=== PATIENT | male | born 1960 | race Caucasian/White ===

== ENCOUNTER → 2017-05-10 | Outpatient (CLI) | payer OTHER ==
--- NOTE | 2017-05-10 10:29 | XR ---
EXAMINATION TYPE: XR chest 2V DATE OF EXAM: 05/10/2017 COMPARISON: 09/17/2013 HISTORY: Preprocedural exam TECHNIQUE: Frontal and lateral views of the chest are obtained. FINDINGS: There is no focal air space opacity, pleural effusion, or pneumothorax seen. The cardiac silhouette size is within normal limits. The osseous structures are intact. Mild multilevel degener ative changes of the thoracic spine are noted. IMPRESSION: No acute cardiopulmonary process.
== END | disposition home or self-care (01) ==
LOC: RADXRMAIN 09:40
PROVIDERS: ATTEND Family Medicine
DX: Z01.818 Encounter for other preprocedural examination (principal); Z01.812 Encounter for preprocedural laboratory examination
CPT/HCPCS: 71046; 87070

== ENCOUNTER 2017-05-28 05:55 | Inpatient (IN) | payer OTHER ==
--- NOTE | 2017-05-27 10:09 | HP ---
HISTORY AND PHYSICAL CHIEF COMPLAINT: Left knee pain. 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 He has had previous injections along with taking anti-inflammatories. Currently he is using a cane. PAST MEDICAL HISTORY: Significant for hypertension, hypercholesterolemia, and reflux disease. PAST SURGICAL HISTORY: Significant for lumbar laminectomy. CURRENT MEDICATIONS: 1. Lisinopril. 2. Simvastatin. 3. Tylenol. He denies drug allergies. FAMILY HISTORY: Significant for heart disease and cancer. SOCIAL HISTORY: Significant for 1/2 pack per day tobacco use. 16 POINT REVIEW OF SYSTEMS: Otherwise reviewed and is noncontributory. PHYSICAL EXAMINATION: The patient is approximately 6 foot 1, 275 pounds of endomorphic habitus. HEENT exam is nonfocal. Neck is supple he, has painless passive motion of his left hip. Straight leg raise is negative. Active motion left knee -10 to 100 degrees of flexion. He has a mild effusion. He is tender about the lateral joint line. Collaterals are stable, Brianna is negative, Azucena's is equivocal. He has genu valgum alignment. His distal neurovascular exam appears to be intact in the left lower extremity. Previous weightbearing, notch, lateral, and Merchant views of the left knee obtained in the office show severe lateral compartment narrowing. IMPRESSION: 1. Left knee severe lateral compartment osteoarthrosis. 2. Increased body mass index. RECOMMENDATIONS: I talked to the patient at length regarding his treatment options. At this point, he is quite symptomatic because of pain related to his osteoarthrosis. He opts to proceed with surgery. We will plan to proceed with left total knee arthroplasty. Risks and benefits were discussed at length in layman's terms. We will institute DVT prophylaxis postoperatively. MMODL / IJN: [id number] /
[~2017-05-28 05:55] MED LIST: ACETAMINOPHEN TAB 500 MG TAB PO ONE; MELOXICAM 7.5 MG TAB PO ONE; TRANEXAMIC ACID 1,000 MG in SODIUM CHLORIDE 0.9% 50 ML IVPB ONE
[2017-05-28] MEDS ORDERED: ONDANSETRON 4 MG/2 ML VIAL IVP ONE (06:30)
[2017-05-28] MEDS ORDERED: MORPHINE SULFATE 4 MG/ML SYRINGE IV PRN (06:30)
[2017-05-28] MEDS ORDERED: LIDOCAINE 1% 20 ML VIAL (10MG/ML) FOR IV START INTRADERMA PRN (06:30)
[2017-05-28] MEDS ORDERED: MIDAZOLAM 2 MG/2 ML VIAL IV PRN (06:30)
[2017-05-28] MEDS ORDERED: SCOPOLAMINE 1.5MG/72HR PATCH TRANSDERM ONE (06:30)
[2017-05-28] MEDS ORDERED: DEXAMETHASONE SOD PHOSPHATE 10 MG/ML 1 ML VIAL IV ONE (06:30)
[2017-05-28] MEDS ORDERED: fentaNYL (PF) 50 MCG/ML 2 ML AMP ONE ×2 (07:17→08:06)
[2017-05-28] MEDS: LACTATED RINGERS 1,000 ML IV SCH (07:22)
[2017-05-28] MEDS ORDERED: MIDAZOLAM 2 MG/2 ML VIAL ONE (08:06)
[2017-05-28] MEDS ORDERED: ceFAZolin 1,000 MG VIAL ONE (08:06)
[2017-05-28] MEDS ORDERED: TRANEXAMIC ACID 1,000 MG/10 ML VIAL ONE (08:06)
[2017-05-28] MEDS ORDERED: PROPOFOL 10 MG/ML 20 ML VIAL IV ONE (08:06)
[2017-05-28] MEDS ORDERED: ePHEDrine SULFATE/0.9% NACL/PF 50 MG/5 ML SYRINGE IV ONE (08:06)
[2017-05-28] MEDS ORDERED: diphenhydrAMINE 50 MG/ML 1 ML VIAL ONE (08:06)
[2017-05-28] MEDS ORDERED: SODIUM CHLORIDE 0.9% 100 ML BAG ONE (08:06)
[2017-05-28] MEDS ORDERED: ceFAZolin IN SWFI 2 GM/20 ML SYRINGE IVP ONE (08:10)
[2017-05-28] MEDS ORDERED: ROPIVACAINE 246.25 MG, EPINEPHrine 0.5 MG, KETOROLAC 30 MG, cloNIDine HCL/PF 80 MCG, WA... MISCELLANE ONE ×5 (08:14)
--- NOTE | 2017-05-28 08:29 | P.ONQ ---
Anesthesiology Proc Note - PNB - Peripheral Nerve Block Performed Left Adductor Canal Infusion Time Out Performed: Yes Procedure Start Time: 07:24 Procedure Stop Time: 07:36 Indication: Acute Post-Operative Pain, Requested by physician Sedation Type: Sedate with meaningful contact maintained Preparation: Sterile Prep Position: Supine Catheter: Indwelling Needle Types: Jordon Needle Size: 100mm (4") Needle Gauge: 18 Technique: Ultrasound Injectate: 0.5% Ropivacaine (see comment for volume) (15 mls Ropi 0.5% + 15 mls Lidocaine 2%) Blood Aspirated: No Pain Paresthesia on Injection Noted: No Resistance on Injection: Normal Events: Uneventful and Well Tolerated
[2017-05-28] MEDS ORDERED: ceFAZolin 3,000 MG in SODIUM CHLORIDE 0.9% IRRIGATIO 3,000 ML IRRIGATION ONE (08:36)
[2017-05-28] MEDS ORDERED: LACTATED RINGERS 1,000 ML IV ONE ×2 (09:15→13:26)
[2017-05-28] MEDS ORDERED: ROPIVACAINE 1,100 MG, SODIUM CHLORIDE 0.9% 330 ML MISCELLANE PRN ×2 (09:46)
[2017-05-28] MEDS ORDERED: MAGNESIUM HYDROXIDE 2,400 MG/10 ML CUP PO PRN (10:04)
[2017-05-28] MEDS ORDERED: ONDANSETRON 4 MG/2 ML VIAL IVP PRN (10:04)
[2017-05-28] MEDS ORDERED: ACETAMINOPHEN TAB 325 MG TAB PO PRN (10:04)
[2017-05-28] MEDS ORDERED: HYDROcodone/APAP 7.5-325MG 1 EACH TAB PO PRN (10:04)
[2017-05-28] MEDS ORDERED: NALOXONE 0.4 MG/ML 1 ML VIAL IV PRN (10:04)
[2017-05-28] MEDS ORDERED: MORPHINE SULFATE 4 MG/ML SYRINGE IVP PRN ×2 (10:04)
--- NOTE | 2017-05-28 10:10 | P.DS ---
Providers Date of admission: 05/28/2017 Expected date of discharge: 05/29/17 Attending physician: Dustin Mina Primary care physician: Stated None Hospital Course: Date of admission: 05/28/2017 Date of discharge: 05/29/2017 Admission diagnosis: Status post left total knee arthroplasty Discharge diagnosis: Same Attending physician: Dr. Mina Surgical procedures: Left total knee arthroplasty Brief history: Patient is a 56-year-old male with a history of progressive primary left knee osteoarthritis. At this point patient has failed conservative treatment measures and has opted to proceed with a elective left total knee arthroplasty. Hospital course: Details of patient's surgery can be found in operative report. Patient tolerated the procedure well and was subsequently transported to orthopedic floor. Patient's orthopeidc and medical care was provided daily. Patient had daily laboratory tests performed for evaluation of overall blood counts. Patient had daily physical therapy to include strengthening range of motion as well as education with walker ambulation. Patient had daily CPM usage as part of their physical therapy program. Patient was treated with Xarelto for their postoperative DVT prophylaxis during their inpatient stay. Patient was noted to have a relatively uneventful postoperative course. Patient reported satisfactory pain control with oral pain medications by postoperative day 0. Patient showed satisfactory progress with physical therapy. Patient moved steadily through the program and had no difficulty meeting the goals by postoperative day 1. Given patient's otherwise satisfactory course and having met physical therapy goals, plan is to discharge patient home on postoperative day 1. Discharge condition/disposition: Patient will be discharged [home] in stable condition. Discharge medications: Instructions are given on resumption of patient's normal daily medications per primary care recommendation, in addition patient will be prescribed [place] 7.5 mg/325 mg, Colace 100 mg, Xarelto 10 mg. Discharge instructions: 1. Wound care and infection precautions, keep incision dry and covered while showering, no lotions, creams, moisturizers. No soaking, tubs, pools, hottubs. Do not scrub over the incision. 2. Weight-bear as tolerated with walker / cane until follow-up. 3. Ice and elevate when necessary. Do not exceed 20 minutes per hour with ice pack. 4. Utilize compression sleeve until seen at first follow up appointment. 5. Visiting nursing care. 6. Home physical therapy including home CPM. 7. Pain meds and anticoagulants per prescription. 8. Pain medication has potential to cause constipation. Increase oral fluid and fiber intake. Contact primary care provider if you have not had a bowel movement within 48 hours after discharge 9. No anti-inflammatory medication until discussed at first post operative visit, this including Motrin, Aleve, Mobic, Diclofenac. 10. Follow up in office at 2 weeks postop with Andrea Rausch PA-C 11. Follow up with your primary care doctor 7-10 days after discharge. 12. Contact [facility] with any questions, . Procedures: Left total knee arthroplasty Patient Condition at Discharge: Good Plan - Discharge Summary New Discharge Prescriptions: New Rivaroxaban [Xarelto] 10 mg PO DAILY #12 tab Docusate [Colace] 100 mg PO DAILY #30 capsule HYDROcodone/APAP 7.5-325MG [[place] 7.5] 1 - 2 each PO Q6HR PRN #60 tab PRN Reason: Pain No Action Lisinopril [Prinivil] 20 mg PO QAM traMADol HCL [Ultram] 50 mg PO Q6HR PRN PRN Reason: Pain Acetaminophen [Tylenol Arthritis] 1,300 mg PO BID Simvastatin 40 mg PO HS Pantoprazole [Protonix] 40 mg PO QAM Ubidecarenone [Co Q-10] 100 mg PO DAILY Cholecalciferol [Vitamin D3] 1,000 unit PO DAILY Glucosamine/Chondr Shah A Sod [Osteo Bi-Flex Caplet] 1 tab PO DAILY Magnesium Oxide [Perdue] 500 mg PO DAILY Discharge Medication List Lisinopril [Prinivil] 20 mg PO QAM 09/17/13 [History] Acetaminophen [Tylenol Arthritis] 1,300 mg PO BID 05/22/17 [History] Cholecalciferol [Vitamin D3] 1,000 unit PO DAILY 05/22/17 [History] Glucosamine/Chondr Shah A Sod [Osteo Bi-Flex Caplet] 1 tab PO DAILY 05/22/17 [ History] Pantoprazole [Protonix] 40 mg PO QAM 05/22/17 [History] Simvastatin 40 mg PO HS 05/22/17 [History] Ubidecarenone [Co Q-10] 100 mg PO DAILY 05/22/17 [History] traMADol HCL [Ultram] 50 mg PO Q6HR PRN 05/22/17 [History] Magnesium Oxide [Perdue] 500 mg PO DAILY 05/28/17 [History] Rivaroxaban [Xarelto] 10 mg PO DAILY #12 tab 05/28/17 [Rx] Docusate [Colace] 100 mg PO DAILY #30 capsule 05/29/17 [Rx] HYDROcodone/APAP 7.5-325MG [[place] 7.5] 1 - 2 each PO Q6HR PRN #60 tab 05/29/17 [ Rx] Follow up Appointment(s)/Referral(s): Lillian Rust DO [REFERRING] - 1 Week [facility], [NON-STAFF] - Tom Rausch PAC [PHYSICIAN 8TH GRADE MATHEMATICS TEACHER] - 06/12/17 3:30 pm Patient Instructions/Handouts: *Surgery [facility] - On-Q Pain Pump Discharge Instructions, Knee Replacement (DC) Activity/Diet/Wound Care/Special Instructions: Orthopedic Discharge Instructions: 1. Wound care and infection precautions, keep incision dry and covered while showering, no lotions, creams, moisturizers. No soaking, pools, hot tubs. Do not scrub over incision. 2. Weight-bear as tolerated with walker / cane until follow-up. 3. Ice and elevate when necessary. Do not exceed 20 minutes per hour with ice pack. 4. Utilize compression sleeve until seen at first follow up appointment. 5. Visiting nursing care. 6. Home physical therapy including home CPM. 7. Pain meds and anticoagulants per prescription. 8. Pain medication has potential to cause constipation. Increase oral fluid and fiber intake. Contact primary care provider if you have not had a bowel movement within 48 hours after discharge. 9. No anti-inflammatory medication until discussed at first post operative visit, this including Motrin, Aleve, Mobic, Diclofenac. 10. Follow up in office at 2 weeks postop with Andrea Rausch PA-C 11. Follow up with your primary care doctor 7-10 days after discharge. 12. Contact [facility] with any questions, [phone]. 13. [facility] - CPM - [phone] - Call once home to arrange delivery. Discharge Disposition: HOME WITH HOME HEALTH SERVICES
--- NOTE | 2017-05-28 10:33 | P.OP ---
Date of Procedure: 05/28/17 Preoperative Diagnosis: Left knee severe tricompartmental osteoarthrosis Postoperative Diagnosis: Same Procedure(s) Performed: Left total knee arthroplasty-posterior stabilized-cemented Implants: Depuy Attune size 8 cemented femoral component, size 7 cemented tibial component , 10 mm articular surface, 38 mm cemented patellar component. This is a posterior stabilized implant. Anesthesia: regional, local, spinal Surgeon: Dustin Mina Passenger Flagman #1: Tom Rausch Estimated Blood Loss (ml): 75 Pathology: other (Bone fragments) Condition: stable Disposition: PACU Indications for Procedure: The patient's a 56-year-old male who presents with progressive left knee pain secondary to osteoarthrosis despite conservative measures. A discussion of the risks and benefits of operative intervention versus continued conservative measures was made with patient. He opted to proceed with surgery. Operative risks to include infection, neurovascular injury, development of blood clots, possible component loosening, possible component failure and need for subsequent procedures was discussed. Informed consent was obtained. Operative Findings: As below Description of Procedure: The patient was brought to the operating room, and after induction of spinal anesthesia the left lower extremity was prepped and draped in normal fashion. The tourniquet was inflated to 270 mmHg. A longitudinal incision extending 3 finger breaths above the superior pole of patella extending to the medial aspect of the tibial tubercle was then made. The skin and subcutaneous tissues were divided sharply. Electrocautery was used for hemostasis. A medial parapatellar arthrotomy is performed. The superficial and deep portions the medial collateral ligament were elevated periosteally. The patella was everted. A portion of the retropatellar fat pad was excised sharply. The knee was flexed. The anterior cruciate ligament was sacrificed. Blunt retractors were placed. A starting hole was made in the distal femur 1 cm anterior to the posterior cruciate ligament origin. An intramedullary femoral guide was gently inserted planning on 5 valgus distal cut with 9 mm distal resection. The cutting block was pinned in place. The distal cut was then made. The posterior referencing sizing guide was utilized. I felt size 8 was most appropriate. 3 external rotation was built into the system and the cutting block was pinned in place. The anterior, posterior, and chamfer cuts were then made. The bone fragments were then removed. The box guide was placed and a reciprocating saw was used to cut the intercondylar notch. A trial size 8 femoral component was placed and was fully seated. There is good anterior to posterior medial to lateral fit. The distal peg holes were drilled. The trial component was then removed. Attention was then paid towards preparing the proximal tibia. An extra medullary guide was utilized in line with the tibial shaft and second metatarsal distally. I planned on 7 mm resection from the medial compartment. 3 of posterior slope was utilized. The cutting block was pinned in place. The proximal tibial cut was made. The bone was removed in one fragment. The tibia sized most appropriate size 7. The flexion and extension gaps were both tight therefore an additional 2 mm was resected utilizing the cutting block. The remnants of the medial lateral menisci were excised at the capsular junction with electrocautery. The trial tibial and femoral components were placed along with a 10 mm articular surface. I was able to obtain full flexion and extension with good stability with varus and valgus stress. The tibial rotation was marked with electrocautery in line with the medial one third of the tibial tubercle. Attention was then paid towards preparing the patella. A patella reamer was utilized taking this down to 15 mm of bone stock. A good flush cut was made. The patella sized most appropriately 38 mm. The peg holes were drilled. The trial components placed. The knee was taken through a range of motion. I had good patellofemoral tracking with no hands technique. The trial components were then removed. The tibia was prepared in the appropriate rotation with appropriate drill and keel punch. The flexion and extension gaps were checked and felt to be symmetric. The posterior soft tissues were injected with ropivacaine. The aqua mantis cautery was used along the posterior capsule. The bony surfaces were prepared with pulsatile lavage and dried. The tibial component was then cemented in placed and was fully seated. Excess cement was removed. The femoral component was cemented place and was fully seated. Excess cement was removed. The trial 10 mm articular surface was placed and the knee was put in full extension. The patella component was cemented in place. After the cement had sufficiently hardened, the knee was again taken through range of motion. Again I was able to obtain full flexion and extension with good stability with varus and valgus stress. The trial articular surface was removed and the final one implanted. This was fully seated. Care taken to avoid any soft tissue interposition. Pulsatile lavage was again utilized. The tourniquet was deflated the second dose of IV TXA was given. Final hemostasis was obtained with electrocautery. The medial parapatellar arthrotomy was closed with running #2 Ethibond suture. There was minimal drainage at this point therefore a deep drain was not placed. The subcutaneous tissues were reapproximated interrupted 2-0 Vicryl sutures. The skin was reapproximated with 3-0 subcu tissues were reapproximated with strata fix suture. Skin tape and adhesive was applied. A sterile dressing was applied. The patient was awoken from sedation and transferred to recovery room in good condition. Blood loss was estimated 75 mL. No complications were incurred. Sponge and needle counts were correct at the end the case.
--- NOTE | 2017-05-28 10:58 | XR ---
EXAMINATION TYPE: XR knee limited LT DATE OF EXAM: 05/28/2017 COMPARISON: NONE HISTORY: Postop replacement TECHNIQUE: 2 views left knee FINDINGS: Tibial and femoral components of in place. Postsurgical changes are present within the knee . Air is within the joint space. No acute fractures are evident. IMPRESSION: 1. No fractures post left knee replacement.
[2017-05-28] MEDS: MORPHINE SULFATE 4 MG/ML SYRINGE IVP ONE ×4 (13:24→14:05)
[2017-05-28 17:03] VITALS: BMI 35.2
[2017-05-28] MEDS: traMADol 50 MG TAB PO SCH ×3 (17:10→21:18)
[2017-05-28] MEDS: ceFAZolin IN SWFI 2 GM/20 ML SYRINGE IVP SCH (18:07)
--- NOTE | 2017-05-28 18:10 | P.HPIM ---
History of Present Illness H&P Date: 05/28/17 Chief Complaint: Medical management 56-year-old male with past medical history of hypertension hyperlipidemia and acid reflux. Patient is here for elective left total knee arthroplasty, due to advanced degenerative joint disease of the left knee where conservative medical management has failed to optimize pain control and problem started affecting his quality of life and daily living activities. Patient has tolerated procedure well this morning no immediate perioperative complications were reported. Currently is laying comfortable in bed not in any acute distress, reports that pain is well controlled. He has a Wong catheter in place with yellow clear urine. Patient did not pass bowel movement and he reported constipation for the past 3 days. Denies any nausea or vomiting he still nothing by mouth as he just came back from surgery. Denies any dizziness lightheadedness chest pain or trouble breathing. CODE STATUS was discussed with the patient, he wishes to be a full code and named his is surrogate decision-maker. Review of Systems Constitutional: Patient denies fever, denies chills, denies night sweating, denies significant weight changes Eyes: Patient denies visual changes, denies eye pain ENT: Patient denies ear pain, denies rhinorrhea, denies sore throat Cardiovascular: Patient denies chest pain, denies exertional dyspnea, denies peripheral leg edema, denies orthopnea, denies paroxysmal nocturnal dyspnea Respiratory:Patient denies cough, denies wheezing, denies shortness of breath Gastrointestinal: Patient denies diarrhea, denies constipation, denies nausea , denies vomiting, denies abdominal pain Genitourinary: Patient denies dysuria, denies hematuria, denies changes in urinary habits, denies genital lesions Musculoskeletal: Patient denies muscle pain, reports chronic low back pain, reports bilateral knee pain Psychiatric: Patient denies changes in mood or memory, denies suicidal ideation, denies anxiety Endocrine: Patient denies heat intolerance, denies cold intolerance, denies excessive thirst, denies polyuria Neurological: Patient denies focal neurologic deficits, denies weakness, denies numbness, denies tingling Hem/Lymphatic: Patient denies bleeding tendency, denies bruising, denies swollen lymph glands Allergic/Immun: Patient denies recent allergic reactions Skin: Patient denies rashes, denies pruritis, denies ulcers Past Medical History Past Medical History: GERD/Reflux, Hypertension, Osteoarthritis (OA) Additional Past Medical History / Comment(s): STEROID INJECTION Mar 2017, "Prediabetes" History of Any Multi-Drug Resistant Organisms: None Reported Past Surgical History: Back Surgery, Hernia Repair Past Anesthesia/Blood Transfusion Reactions: No Reported Reaction Past Psychological History: No Psychological Hx Reported Smoking Status: Former smoker Past Alcohol Use History: None Reported Past Drug Use History: None Reported - Past Family History Family history History Unknown: Yes (Patient reported heart disease, diabetes mellitus runs in the family. He reported cancer in his gram-positive unknown type) Medications and Allergies Home Medications Medication Instructions Recorded Confirmed Type Lisinopril [Prinivil] 20 mg PO QAM 09/17/13 05/28/17 History Acetaminophen [Tylenol Arthritis] 1,300 mg PO BID 05/22/17 05/28/17 History Cholecalciferol [Vitamin D3] 1,000 unit PO DAILY 05/22/17 05/28/17 History Glucosamine/Chondr Shah A Sod [Osteo 1 tab PO DAILY 05/22/17 05/28/17 History Bi-Flex Caplet] Ibuprofen [Motrin] 400 mg PO TID 05/22/17 05/28/17 History Pantoprazole [Protonix] 40 mg PO QAM 05/22/17 05/28/17 History Simvastatin 40 mg PO HS 05/22/17 05/28/17 History Ubidecarenone [Co Q-10] 100 mg PO DAILY 05/22/17 05/28/17 History traMADol HCL [Ultram] 50 mg PO Q6HR PRN 05/22/17 05/28/17 History Magnesium Oxide [Perdue] 500 mg PO DAILY 05/28/17 05/28/17 History Rivaroxaban [Xarelto] 10 mg PO DAILY #12 tab 05/28/17 Rx Allergies Allergy/AdvReac Type Severity Reaction Status Date / Time No Known Allergies Allergy Verified 05/28/17 12:04 Physical Exam Vitals: Vital Signs Temp Pulse Pulse Resp BP Pulse Ox 05/28/17 16:00 98.2 F 86 16 137/88 96 05/28/17 15:59 71 16 140/54 100 05/28/17 15:30 71 16 135/79 100 05/28/17 14:30 71 16 130/68 100 05/28/17 13:59 71 16 120/68 100 05/28/17 13:25 68 16 127/78 100 05/28/17 13:10 69 16 126/70 100 05/28/17 12:45 69 16 127/62 100 05/28/17 12:30 70 16 100/60 100 05/28/17 12:15 64 16 111/62 98 05/28/17 12:00 61 16 102/55 98 05/28/17 11:45 69 16 101/55 98 05/28/17 11:32 69 16 113/60 98 05/28/17 11:15 74 16 112/59 98 05/28/17 11:01 61 16 109/59 98 05/28/17 10:45 68 16 112/62 98 05/28/17 10:30 70 16 111/59 98 05/28/17 10:26 96.8 F L 65 16 99/53 98 05/28/17 07:35 81 16 133/82 97 05/28/17 06:34 97.9 F 87 16 147/91 97 Intake and Output 05/28/17 05/28/17 05/28/17 06:59 14:59 22:59 Intake Total 2000 Output Total 275 Balance 1726 Intake: IV 2000 Output: Urine 200 Estimated Blood Loss 75 Other: Voiding Method Indwelling Catheter Weight 117.934 kg 117.934 kg Patient Weight 05/29/17 06:59 Weight 117.934 kg Constitutional: No acute distress, conversant, pleasant Eyes: Anicteric sclerae, moist conjunctiva, no lid-lag Pupils equal round reactive to light ENMT: NC/AT Oropharynx clear, no erythema, exudates Neck: Supple, FROM, no masses, or JVD No carotid bruits No thyromegaly Lungs: Clear to auscultation Clear to percussion Normal respiratory effort, no accessory muscle use Cardiovascular: Heart regular in rate and rhythm, No murmurs, gallops, or rubs No peripheral edema Abdominal: Soft Nontender, no guarding, rebound or rigidity Abdomen moving with respiration Normoactive bowel sounds No hepatomegaly, No splenomegaly No palpable mass No abdominal wall hernia noted Skin: Normal temperature, tone, texture, turgor No induration No subcutaneous nodules No rash, lesions No ulcers Extremities: No digital cyanosis No clubbing Pedal pulses intact and symmetrical Radial pulses intact and symmetrical No calf tenderness Surgical dressing over the left lower extremity, nerve block over the left thigh , Surgical dressing looks dry clean and intact Psychiatric: Alert and oriented to person, place and time Appropriate affect fair judgment Neuro Muscles Strength 5/5 in all 4 extremities Except for limited exam over the left lower extremity due to recent surgery fear of pain Sensation to light touch grossly present throughout Cranial nerves II-XII grossly intact No focal sensory deficits Lymphatics: no palpable cervical or supraclavicular , or inguinal lymph nodes Thrombosis Risk Factor Assmnt - Choose All That Apply Each Factor Represents 1 point: Age 41-60 years Each Risk Factor Represents 5 Points: Elective major lower extremity arthoplasty Thrombosis Risk Factor Assessment Total Risk Factor Score: 6 Thrombosis Risk Factor Assessment Level: High Risk Assessment and Plan Assessment: 56-year-old male with history of hypertension, hyperlipidemia, acid reflux. Presented for elective left total knee arthroplasty. He tolerated procedure well morning. Currently he is seen for postoperative medical management on postoperative day #0. Plan: #Left knee degenerative joint disease status post total knee arthroplasty postoperative day #0 Pain management per orthopedic DVT prophylaxis per orthopedic #Hypertension, currently controlled Continue home medications #Hyperlipidemia Continue with statin #DVT prophylaxis, per orthopedic recommendations Acid reflux, continue with PPI #Check morning labs, Thank you for allowing us to participate in the care of this patient. Do not hesitate to contact us with questions. Someone can be reached from the [facility] hospitalist group at all hours of the day at [phone].
[2017-05-28 20:23] LABS: Glucose,Whole Blood 193 mg/dL (75-99)
[2017-05-28] MEDS: INSULIN ASPART 100 UNIT/ML 1 ML 10 ML VIAL SQ SCH (20:25)
[2017-05-28] MEDS: PANTOPRAZOLE 40 MG TABLET PO SCH (20:27)
[2017-05-28] MEDS ORDERED: SENNOSIDES-DOCUSATE SODIUM 1 EACH TAB PO SCH (21:00)
[2017-05-28] MEDS ORDERED: ATORVASTATIN 20 MG TAB PO SCH (21:00)
[2017-05-29 01:26] VITALS: TEMP 98.2
[2017-05-29] MEDS: LACTATED RINGERS 1,000 ML IV SCH (01:42)
[2017-05-29] MEDS: HYDROcodone/APAP 7.5-325MG 1 EACH TAB PO PRN ×2 (04:45→11:18)
[2017-05-29] MEDS: ceFAZolin IN SWFI 2 GM/20 ML SYRINGE IVP SCH (04:46)
--- NOTE | 2017-05-29 05:51 | P.PN ---
Progress Note - Text Progress Note Date: 05/29/17 56 yo gentleman, Status post left total knee replacement. Patient received the adductor canal catheter. Ropivacaine 0.2% at 8 mls/hr. Patient was seen today at 6:15 AM. Patient was sitting in bed comfortably. VAS score of 0/10 no complains overnight. Assessment and plan: patient will be sent home with the adductor canal pump. Adequate pain control.
[2017-05-29 07:28] VITALS: BP 138/84; PULSE 72; RESP 16
[2017-05-29] MEDS: PANTOPRAZOLE 40 MG TABLET PO SCH (08:06)
[2017-05-29] MEDS: traMADol 50 MG TAB PO SCH ×2 (08:07→13:24)
[2017-05-29 08:09] LABS: Basophils # (A) 0.1 k/uL (0-0.2); Basophils % (A) 1 %; Eosinophils # (A) 0.1 k/uL (0-0.7); Eosinophils % (A) 1 %; HCT 36.3 % (39.0-53.0); HGB 12.3 gm/dL (13.0-17.5); Lymphocytes % (A) 20 %; MCHC 33.9 g/dL (31.0-37.0); MCV 88.3 fL (80.0-100.0); Mean Platelet Volume 7.3; Monocytes # (A) 0.7 k/uL (0-1.0); Monocytes % (A) 7 %; Neutrophils # (A) 6.8 k/uL (1.3-7.7); Neutrophils % (A) 70 %; Platelet Count 216 k/uL (150-450); RBC 4.11 m/uL (4.30-5.90); RDW 13.4 % (11.5-15.5); WBC 9.7 k/uL (3.8-10.6)
[2017-05-29] MEDS: INSULIN ASPART 100 UNIT/ML 1 ML 10 ML VIAL SQ SCH ×2 (08:10→13:26)
[2017-05-29 08:12] LABS: Glucose,Whole Blood 104 mg/dL (75-99)
[2017-05-29 08:27] LABS: Anion Gap 9 mmol/L; Blood Urea Nitrogen 19 mg/dL (9-20); Calcium 8.8 mg/dL (8.4-10.2); Carbon Dioxide 26 mmol/L (22-30); Chloride 104 mmol/L (98-107); Glucose 99 mg/dL (74-99); Sodium 139 mmol/L (137-145)
[2017-05-29] MEDS ORDERED: MELOXICAM 7.5 MG TAB PO SCH (09:00)
[2017-05-29] MEDS ORDERED: RIVAROXABAN 10 MG TAB PO SCH (09:00)
[2017-05-29] MEDS ORDERED: LISINOPRIL 20 MG TAB PO SCH (09:00)
[2017-05-29 11:25] LABS: Glucose,Whole Blood 163 mg/dL (75-99)
--- NOTE | 2017-05-29 11:38 | P.PN ---
Subjective Progress Note Date: 05/29/17 Principal diagnosis: Status post left total knee arthroplasty Patient seen today resting in his hospital bed, his is present at bedside. Patient appears comfortable, his pain is controlled with current medications. He did ambulate with therapy, slight difficulty with stairs. Denies any headaches, lightheadedness, chest pain or shortness of breath. Objective - Vital Signs Vital signs: Vital Signs Temp 98.2 F 05/29/17 07:28 Pulse 72 05/29/17 07:28 Resp 16 05/29/17 07:28 BP 138/84 05/29/17 07:28 Pulse Ox 97 05/29/17 07:28 Intake & Output 05/28/17 05/29/17 05/29/17 18:59 06:59 18:59 Intake Total 2000 720 200 Output Total 275 800 350 Balance 1726 -80 -150 Weight 117.934 kg Intake: IV 2000 Intake, IV Titration 270 Amount Lactated Ringers 1,000 ml 270 @ 60 mls/hr IV .[id number] [facility] Rx#:[id number] Oral 0 450 200 Output: Urine 200 800 350 Uretheral (Wong) 350 Estimated Blood Loss 75 Other: Voiding Method Indwelling Catheter Indwelling Catheter Indwelling Catheter - Exam Left lower extremity: Incision is clean, dry, and intact. The prineo tape is in good condition. There is minimal soft tissue swelling and ecchymosis surrounding the medial and lateral aspects of the incision. Calf is soft, no tenderness with palpation. Plantar flexion, dorsiflexion, EHL, FHL are intact. Sensory exam to light touch throughout the extremity is intact, dorsal pedis pulses 2+. - Labs CBC & Chem 7: 05/29/17 07:39 05/29/17 07:39 Labs: Abnormal Lab Results - Last 24 Hours (Table) 05/28/17 05/29/17 05/29/17 Range/Units 20:21 07:39 08:10 RBC 4.11 L (4.30-5.90) m/uL Hgb 12.3 L (13.0-17.5) gm/dL Hct 36.3 L (39.0-53.0) % POC Glucose (mg/dL) 193 H 104 H (75-99) mg/dL 05/29/17 Range/Units 11:06 RBC (4.30-5.90) m/uL Hgb (13.0-17.5) gm/dL Hct (39.0-53.0) % POC Glucose (mg/dL) 163 H (75-99) mg/dL Assessment and Plan Plan: Assessment: 1. Postop day #1 status post left total knee arthroplasty Plan: 1. Pain control, continue with oral medication 2. GI and DVT prophylaxis, plan for discharge home on aspirin 325 mg twice a day 3. Wound care instructions are discussed 4. Home therapy and nursing 5. Medical recommendations 6. Discharge planning: Patient continues to improve with stairs and therapy today, plan for discharge home today Time with Patient: Less than 30
[2017-05-29] MEDS ORDERED: CHOLECALCIFEROL 1,000 UNIT TAB PO SCH (12:00)
--- NOTE | 2017-05-29 13:42 | P.PN ---
Subjective Progress Note Date: 05/29/17 Principal diagnosis: patient was seen and examined, in follow up of post surgical medical management Patient seen and examined, feels well was able to participate in physical therapy. Denies any chest pain or trouble breathing. He is urinating with no issues. Eager to go home. Reports the pain is well controlled Objective - Vital Signs Vital signs: Vital Signs Temp 98.2 F 05/29/17 07:28 Pulse 72 05/29/17 07:28 Resp 16 05/29/17 07:28 BP 138/84 05/29/17 07:28 Pulse Ox 97 05/29/17 07:28 Intake & Output 05/28/17 05/29/17 05/29/17 18:59 06:59 18:59 Intake Total 2000 720 200 Output Total 275 800 350 Balance 1726 -80 -150 Weight 117.934 kg Intake: IV 2000 Intake, IV Titration 270 Amount Lactated Ringers 1,000 ml 270 @ 60 mls/hr IV .[id number] [facility] Rx#:[id number] Oral 0 450 200 Output: Urine 200 800 350 Uretheral (Wong) 350 Estimated Blood Loss 75 Other: Voiding Method Indwelling Catheter Indwelling Catheter Indwelling Catheter # Voids 1 - Exam CConstitutional: vital signs stable, Not in acute distress, pleasant, conversant Lungs: Clear to auscultation bilaterally, clear to percussion, normal respiratory effort no use of accessory muscles Cardiovascular: Regular rate and rhythm, no murmurs, no gallops, no rubs, no peripheral edema Gastrointestinal: Soft, no tenderness to palpation, no palpable hepatosplenomegally, bowel sounds positive Skin: Unremarkable temperature, tone, texture, and turgor, no induration or subcutaneous nodule, no rashes, no lesions, no ulcers Extremities: Left lower extremity with surgical dressing and ice packing in place, nerve block pump in place. Capillary refill is immediate over bilateral big toes. No digital cyanosis or clubbing, peripheral pulses palpable and equal over bilateral radial arteries and dorsalis pedis artery, no calf muscle tenderness Psych: Alert, oriented to place, person and time, appropriate affect, intact judgment - Labs CBC & Chem 7: 05/29/17 07:39 05/29/17 07:39 Labs: Abnormal Lab Results - Last 24 Hours (Table) 05/28/17 05/29/17 05/29/17 Range/Units 20:21 07:39 08:10 RBC 4.11 L (4.30-5.90) m/uL Hgb 12.3 L (13.0-17.5) gm/dL Hct 36.3 L (39.0-53.0) % POC Glucose (mg/dL) 193 H 104 H (75-99) mg/dL 05/29/17 Range/Units 11:06 RBC (4.30-5.90) m/uL Hgb (13.0-17.5) gm/dL Hct (39.0-53.0) % POC Glucose (mg/dL) 163 H (75-99) mg/dL Assessment and Plan Assessment: 56-year-old male with history of hypertension, hyperlipidemia, acid reflux. Presented for elective left total knee arthroplasty. He tolerated procedure well , Currently he is seen for postoperative medical management on postoperative day #1 Plan: #Left knee degenerative joint disease status post total knee arthroplasty postoperative day #1 Pain management per orthopedic DVT prophylaxis per orthopedic , on xarelto # post operative anemia, mild patient offered PO iron supplementation , however he declined due to constipation and preferred to rely on diet , and to follow up with his PCP on blood work #Hypertension, currently controlled Continue home medications #Hyperlipidemia Continue with statin #DVT prophylaxis, per orthopedic recommendations on xarelto Acid reflux, continue with PPI # prediabetes patient counseled to contiue to follow up with PCP and counseled for life style modification and weight loss A1C still pending patient is stable from internal medicine stand point for discharge Thank you for this consultation
[2017-05-29 18:17] LABS: Hemoglobin A1C 6.1 % (4.0-6.0)
== END 2017-05-29 14:20 | disposition home health service (06) | DRG 470 ==
LOC: OR 05:55 → EDSTATUS 08:00 → 3SUR 10:13
PROVIDERS: ADMIT Orthopaedic Surgery; ATTEND Orthopaedic Surgery
PROC: 0SRD0J9 Replacement of Left Knee Joint with Synthetic Substitute, Cemented, Open Approach (ICD-10-PCS; principal; 2017-05-28 08:00)
DX: M17.12 Unilateral primary osteoarthritis, left knee (principal); D64.9 Anemia, unspecified; E78.5 Hyperlipidemia, unspecified; E78.00 Pure hypercholesterolemia, unspecified; I10 Essential (primary) hypertension; R73.03 Prediabetes; K21.9 Gastro-esophageal reflux disease without esophagitis; Z82.49 Family history of ischemic heart disease and other diseases of the circulatory system; Z79.899 Other long term (current) drug therapy; Z98.890 Other specified postprocedural states; Z72.0 Tobacco use
CPT/HCPCS: 80048; 83036; 85025; 88300

== ENCOUNTER 2017-06-25 08:39 | Day surgery (SDC) | payer OTHER ==
[2017-05-22 09:55] VITALS: BMI 34.2
--- NOTE | 2017-06-24 09:03 | HP ---
HISTORY AND PHYSICAL CHIEF COMPLAINT: Left knee pain. 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 He has tried medications in addition to injections. He notes significant pain and is limping. He has been using a cane. PAST MEDICAL HISTORY: Significant for hypertension, hypercholesterolemia, and reflux disease. PAST SURGICAL HISTORY: Significant for lumbar laminectomy. CURRENT MEDICATIONS: 1. Lisinopril. 2. Simvastatin. 3. Tylenol. ALLERGIES: He denies drug allergies. FAMILY HISTORY: Significant for heart disease. SOCIAL HISTORY: Significant for 1/2 pack per day tobacco use. REVIEW OF SYSTEMS: Sixteen-point review of systems otherwise reviewed and is noncontributory. PHYSICAL EXAMINATION: On examination, the patient is approximately 6 feet 1 inch, 275 pounds of endomorphic habitus. HEENT exam is nonfocal. Neck is supple. He has painless passive motion of left hip. Straight leg raise is negative. Active motion left knee -10 to 100 degrees of flexion. He has mild effusion. He is tender about the lateral joint line. Collaterals are stable, Brianna's negative, Azucena's is equivocal. He has genu valgum alignment. His distal neurovascular exam appears to be intact in the left lower extremity. Weightbearing notch, lateral and Merchant views of the left knee obtained in the office show severe lateral compartment narrowing. IMPRESSION: 1. Left knee severe lateral compartment osteoarthrosis. 2. Increased body mass index. RECOMMENDATIONS: I talked to the patient at length regarding his treatment options. At this point, he remains quite symptomatic despite extensive conservative measures. After thorough discussion, he opts to proceed with surgery. We will plan to proceed with left total knee arthroplasty. Risks and benefits were discussed at length in layman's terms. We will institute DVT prophylaxis postoperatively. The patient underwent preoperative medical evaluation by Dr. Rust. LUCIA / AMRITN: [id number] /
--- NOTE | 2017-06-24 12:51 | HP ---
HISTORY AND PHYSICAL CHIEF COMPLAINT: Right knee pain. 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 He notes pain that limits his normal function and activities. He recently underwent left total knee arthroplasty. PAST MEDICAL HISTORY: Significant for arthritis, hypercholesteremia, hypertension, and reflux disease. PAST SURGICAL HISTORY: Significant for lumbar laminectomy and left total knee arthroplasty. CURRENT MEDICATIONS: 1. Lisinopril. 2. Pantoprazole. 3. Simvastatin. 4. Tylenol. ALLERGIES: He denies drug allergies. FAMILY HISTORY: Significant for cancer and heart disease. SOCIAL HISTORY: Significant for 1/2 pack per day tobacco use. REVIEW OF SYSTEMS: Sixteen-point review of systems otherwise reviewed and is noncontributory. PHYSICAL EXAMINATION: On examination, the patient is approximately 6 feet 1 inch, 275 pounds of endomorphic habitus. HEENT exam is nonfocal. Neck is supple. He has painless passive motion of the right hip. Straight leg raise is negative. Active motion right knee -10 to 125 degrees of flexion. He is tender about the lateral joint line. Collaterals are stable, Brianna's negative, Azucena's is equivocal. He has genu valgum alignment. His distal neurovascular exam appears intact in the right lower extremity. Weightbearing notch lateral Merchant views of the right knee obtained in the office show severe lateral compartment osteoarthrosis. IMPRESSION: 1. Right knee severe lateral compartment osteoarthrosis. 2. Increased body mass index. RECOMMENDATIONS: I talked to the patient at length regarding his treatment options. At this point, he is quite symptomatic because of pain related to his osteoarthrosis in the right knee. At this point, he opts to proceed with surgery. We will plan to proceed with right total knee arthroplasty. Risks and benefits were discussed at length in layman's terms. We will institute DVT prophylaxis postoperatively. MMODL / IJN: [id number] /
[~2017-06-25 08:39] MED LIST changes: +DEXAMETHASONE SOD PHOSPHATE 10 MG/ML 1 ML VIAL IV ONE; +MORPHINE SULFATE 4MG/4ML SYRG IV PRN; +ONDANSETRON 4 MG/2 ML VIAL IVP ONE; +ceFAZolin IN SWFI 2 GM/20 ML SYRINGE IVP ONE
[2017-06-25] MEDS: LACTATED RINGERS 1,000 ML IV SCH ×2 (09:19→17:04)
[2017-06-25 09:42] LABS: Glucose,Whole Blood 125 mg/dL (75-99)
[2017-06-25 10:00] LABS: Partial Thromboplastin Time 22.4 sec (22.0-30.0); Prothrombin Time 9.6 sec (9.0-12.0)
[2017-06-25] MEDS: MIDAZOLAM 2 MG/2 ML VIAL ONE ×2 (10:15→10:30)
[2017-06-25] MEDS ORDERED: ROPIVACAINE 1,100 MG, SODIUM CHLORIDE 0.9% 330 ML MISCELLANE PRN ×2 (10:44)
--- NOTE | 2017-06-25 10:47 | P.ONQ ---
Anesthesiology Proc Note - PNB - Peripheral Nerve Block Performed Right Adductor Canal Infusion Time Out Performed: Yes (1014) Procedure Start Time: 10:15 Procedure Stop Time: 10:32 Indication: Acute Post-Operative Pain, Dx/Pain Location (Right knee pain), Requested by physician Sedation Type: Sedate with meaningful contact maintained Preparation: Sterile Prep Position: Supine Needle Types: Touhy Needle Size: 100mm (4") Needle Gauge: 20 Technique: Ultrasound Injectate: 0.5% Ropivacaine (see comment for volume) (30 mls of Ropivacaine 0.5% ) Blood Aspirated: No Pain Paresthesia on Injection Noted: No Resistance on Injection: Normal Events: Uneventful and Well Tolerated
[2017-06-25] MEDS ORDERED: LIDOCAINE 1% INJ 10MG/ML (20 ML MDV) ONE (10:53)
[2017-06-25] MEDS ORDERED: SODIUM CHLORIDE 0.9% 100 ML BAG ONE (10:53)
[2017-06-25] MEDS ORDERED: MIDAZOLAM 2 MG/2 ML VIAL ONE (10:53)
[2017-06-25] MEDS ORDERED: PROPOFOL 10 MG/ML 20 ML VIAL IV ONE (10:53)
[2017-06-25] MEDS ORDERED: TRANEXAMIC ACID 1,000 MG/10 ML VIAL ONE (10:53)
[2017-06-25] MEDS ORDERED: fentaNYL (PF) 50 MCG/ML 2 ML AMP ONE (10:53)
[2017-06-25] MEDS ORDERED: ROPIVACAINE 246.25 MG, EPINEPHrine 0.5 MG, KETOROLAC 30 MG, cloNIDine HCL/PF 80 MCG, WA... MISCELLANE ONE ×5 (11:30)
[2017-06-25] MEDS ORDERED: LACTATED RINGERS 1,000 ML IV ONE (11:32)
[2017-06-25] MEDS ORDERED: ceFAZolin 3,000 MG in SODIUM CHLORIDE 0.9% IRRIGATIO 3,000 ML IRRIGATION ONE (11:32)
[2017-06-25] MEDS ORDERED: MORPHINE SULFATE 4 MG/ML SYRINGE IV PRN (12:39)
[2017-06-25] MEDS ORDERED: NALOXONE 0.4 MG/ML 1 ML VIAL IV PRN (12:39)
[2017-06-25] MEDS ORDERED: HYDROcodone/APAP 7.5-325MG 1 EACH TAB PO PRN (12:39)
[2017-06-25] MEDS ORDERED: MAGNESIUM HYDROXIDE 2,400 MG/10 ML CUP PO PRN (12:39)
[2017-06-25] MEDS ORDERED: ONDANSETRON 4 MG/2 ML VIAL IVP PRN (12:39)
[2017-06-25] MEDS ORDERED: MORPHINE SULFATE 4MG/4ML SYRG IV PRN ×2 (12:39→15:55)
[2017-06-25] MEDS ORDERED: ACETAMINOPHEN TAB 325 MG TAB PO PRN (12:39)
--- NOTE | 2017-06-25 13:15 | P.OP ---
Date of Procedure: 06/25/17 Preoperative Diagnosis: Right knee severe tricompartmental osteoarthrosis Postoperative Diagnosis: Same Procedure(s) Performed: Right total knee tpuhgnknkcfn-timrroon-nijzmgwnz stabilized Implants: Depuy Attune size 8 cemented femoral component, size 7 cemented tibial component, 9 mm articular surface, 35 mm cemented patellar component. This is a posterior stabilized implant. Anesthesia: regional, local, spinal Surgeon: Dustin Mina Product Analyst #1: Tom Rausch Estimated Blood Loss (ml): 50 Pathology: other (Bone fragments) Condition: stable Disposition: PACU Indications for Procedure: The patient's a 56-year-old male who presents with progressive right knee pain secondary osteoarthrosis despite extensive conservative measures. A discussion of the risks and benefits of operative intervention versus continued conservative measures was made with patient. He opted to proceed with surgery. Operative risks to include infection, neurovascular injury, development of blood clots, possible component loosening, possible component failure need for subsequent procedures was discussed. Informed consent was obtained. Operative Findings: As below Description of Procedure: The patient was brought to the operating room, and after induction of spinal anesthesia the right lower extremity was prepped and draped in normal fashion. The limb was elevated to facilitate exsanguination. The tourniquet was inflated to 270 mmHg. A longitudinal incision extending 3 finger breaths above the superior pole of patella extending to the medial aspect of the tibial tubercle was then made. The skin and subcu tissues were divided sharply. Electrocautery was used for hemostasis. A medial parapatellar arthrotomy was then performed. The medial soft tissues to include the superficial and deep portions of the medial collateral ligament were elevated subperiosteally. The patella was everted. A portion of the retropatellar fat pad was excised sharply. The lateral collateral and popliteus were elevated off the lateral femoral condyle with electrocautery as he had significant valgus deformity. The anterior cruciate ligament was sacrificed. A starting hole was made in the distal femur 1 cm anterior to the posterior cruciate ligament origin. An intramedullary femoral guide was then gently inserted planning on 5 valgus distal cut with 9 mm distal resection. The cutting block was pinned in place. The distal cut was then made. The posterior referencing sizing guide was utilized. I felt size 8 was most appropriate. 3 of external rotation was built into the system and verified off the trans-epicondylar axis and the posterior condyles. The cutting block was pinned in place. The anterior, posterior, and chamfer cuts were then made. The intercondylar cut was then made with the appropriate guide utilizing a reciprocating saw. The bone block was removed. The trial size 8 femoral components placed and was fully seated. There is good anterior to posterior and medial to lateral fit. The distal peg holes were drilled. The trial component was removed. Attention was then paid towards repairing the proximal tibia. An extra medullary tibial guide was utilized in line with the tibial shaft and second metatarsal distally. Upon a 3 posterior slope. I planned on 8 mm resection from the medial compartment. The cutting block was pinned in place. The proximal tibial cut was made. Bone was removed in one fragment. The tibia sized most appropriate size 7. The remnants of the medial and lateral menisci were excised the capsule junction with electrocautery. The trial femoral and tibial components were placed along with a 9 mm articular surface. I was able to obtain full flexion and extension with good stability with varus valgus stress. After several flexion and extension cycles, the tibial rotation was marked with electrocautery in line with the medial one third of the tibial tubercle. Attention was then paid towards preparing the patella. A patella reamer was utilized taking this down to 14 mm of bone stock. A good flush cut was made. The patella sized most appropriately 35 mm. The peg holes were drilled. The trial components placed. The knee was again taken through range of motion. I had good patellofemoral tracking with no hands technique. The trial components were then removed. The tibia was prepared in the appropriate rotation with appropriate drill and keel punch. The posterior osteophytes off the distal femur were carefully removed with a curved osteotome. The flexion and extension gaps were checked and felt to be symmetric. The bony surfaces were prepared with pulsatile lavage and dried. The posterior soft tissues were injected with ropivacaine. The tibial component was then cemented in placed and was fully seated. Excess cement was removed. The femoral component was cemented in placed and was fully seated. Excess cement was removed. The trial 9 mm articular surface was placed in the knee was put in full extension. The patellar component cemented in placed and was fully seated. Excess cement was removed. After the cement had sufficiently hardened, the knee was again taken through range of motion. Again I was able to obtain full flexion and extension with good stability with varus and valgus stress. The trial 9 mm articular surface was removed and the final one inserted. This was fully seated. Care taken to avoid any soft tissue interposition. Pulsatile lavage was again utilized. The tourniquet was deflated less than 70 minutes total tourniquet time. Final hemostasis was obtained with electrocautery. The second dose of IV TXA was given. The medial parapatellar arthrotomy was closed with #2 Ethibond suture. A deep drain was placed exiting laterally. The subcutaneous tissues were reapproximated with interrupted 2-0 Vicryl sutures. The skin was reapproximated with 3-0 subcuticular strata fix suture. Skin tape and adhesive was applied. A sterile dressing was applied. The patient was then awoken from sedation and transferred to the recovery room in good condition. Blood loss was estimated 50 mL. No complications were incurred. Sponge and needle counts were correct in the case.
--- NOTE | 2017-06-25 13:19 | XR ---
EXAMINATION TYPE: XR knee limited RT DATE OF EXAM: 06/25/2017 COMPARISON: NONE HISTORY: 56-year-old male evaluation for postoperative abnormality and alignment TECHNIQUE: Portable AP and lateral views FINDINGS: Images show placement of right total knee arthroplasty. Both distal femoral and proximal tibial compo nents of the prosthesis appear well seated without prosthetic fracture. Anterior soft tissue swelling with soft tissue air as well as intra-articular air and joint effusion relating to recent operation. Surgical drain is present. Alignment grossly anatomic. IMPRESSION: Uncomplicated postoperative appearance right total knee arthroplasty.
[2017-06-25] MEDS: HYDROcodone/APAP 7.5-325MG 1 EACH TAB PO PRN ×2 (14:25→19:29)
[2017-06-25] MEDS: traMADol 50 MG TAB PO SCH ×3 (14:28→22:31)
--- NOTE | 2017-06-25 15:53 | P.CONS ---
History of Present Illness - Reason for Consult Consult date: 06/25/17 medical management Requesting physician: Dustin Mina - Chief Complaint Elective right total knee arthroplasty - History of Present Illness 56-year-old male with past medical history of hypertension, hyperlipidemia. Patient is presented for elective right total knee arthroplasty due to advanced degenerative joint disease failed conservative medical management. Medicine was consultative for medical management of prediabetes and hypertension postoperatively. Patient tolerated procedure well no immediate perioperative complications. He tolerated by mouth intake postop. He continues to have Wong catheter in place did not pass a bowel movement yet. He reports that pain overall is well controlled but he feels more pain compared to last time he had the left knee done. Otherwise at this time he denies any chest pain or trouble breathing denies any dizziness or lightheadedness denies any nausea vomiting. Review of Systems Constitutional: Patient denies fever, denies chills, denies night sweating, denies significant weight changes Eyes: Patient denies visual changes, denies eye pain ENT: Patient denies ear pain, denies rhinorrhea, denies sore throat Cardiovascular: Patient denies chest pain, denies exertional dyspnea, denies peripheral leg edema, denies orthopnea, denies paroxysmal nocturnal dyspnea Respiratory:Patient denies cough, denies wheezing, denies shortness of breath Gastrointestinal: Patient denies diarrhea, denies constipation, denies nausea , denies vomiting, denies abdominal pain Genitourinary: Patient denies dysuria, denies hematuria, denies changes in urinary habits, denies genital lesions Musculoskeletal: Patient denies muscle pain, reports chronic knee pain, chronic low back pain Psychiatric: Patient denies changes in mood or memory, denies suicidal ideation, denies anxiety Endocrine: Patient denies heat intolerance, denies cold intolerance, denies excessive thirst, denies polyuria Neurological: Patient denies focal neurologic deficits, denies weakness, denies numbness, denies tingling Hem/Lymphatic: Patient denies bleeding tendency, denies bruising, denies swollen lymph glands Allergic/Immun: Patient denies recent allergic reactions Skin: Patient denies rashes, denies pruritis, denies ulcers Past Medical History Past Medical History: Diabetes Mellitus, GERD/Reflux, Hypertension, Osteoarthritis (OA) Additional Past Medical History / Comment(s): STEROID INJECTION Mar 2017, "Prediabetes" History of Any Multi-Drug Resistant Organisms: None Reported Past Surgical History: Back Surgery, Hernia Repair, Joint Replacement Additional Past Surgical History / Comment(s): Laminectomy x 2, left knee replaced 05-29-17 Past Anesthesia/Blood Transfusion Reactions: No Reported Reaction Additional Past Anesthesia/Blood Transfusion Reaction / Comm: no hx blood transfusion Past Psychological History: No Psychological Hx Reported Smoking Status: Former smoker Past Alcohol Use History: None Reported Additional Past Alcohol Use History / Comment(s): quit smoking Apr, smoked approx 30-40 yrs-1ppd Past Drug Use History: None Reported - Past Family History Mother Family Medical History: Diabetes Mellitus Additional Family Medical History / Comment(s): not sure hx Father Family Medical History: Diabetes Mellitus, Myocardial Infarction (ME) Additional Family Medical History / Comment(s): heart problems-was on blood thinners. Family history History Unknown: Yes Medications and Allergies Home Medications and Allergies Comment(s): Home medications reviewed Home Medications Medication Instructions Recorded Confirmed Type Lisinopril [Prinivil] 20 mg PO QAM 09/17/13 06/12/17 History Pantoprazole [Protonix] 40 mg PO QAM 05/22/17 06/12/17 History RX: Simvastatin 40 mg PO HS 05/22/17 06/25/17 History Magnesium Oxide [Perdue] 500 mg PO BID 05/28/17 06/25/17 History Docusate [Colace] 100 mg PO DAILY #30 capsule 05/29/17 06/12/17 Rx HYDROcodone/APAP 7.5-325MG [[place] 1 - 2 each PO Q6HR PRN #60 tab 05/29/17 Rx 7.5] Rivaroxaban [Xarelto] 10 mg PO DAILY #12 tab 06/25/17 Rx Allergies Allergy/AdvReac Type Severity Reaction Status Date / Time No Known Allergies Allergy Verified 06/13/17 10:19 Physical Exam Vitals: Vital Signs Temp Pulse Pulse Resp BP BP Pulse Ox 06/25/17 13:45 73 16 109/61 96 06/25/17 13:30 75 16 101/58 98 06/25/17 13:15 62 16 102/57 98 06/25/17 13:03 96.9 F L 73 12 109/69 96 06/25/17 09:16 98.5 F 85 16 118/69 98 Intake and Output 06/25/17 06/25/17 06/25/17 06:59 14:59 22:59 Intake Total 1801 Output Total 425 Balance 1376 Intake: IV 1801 Output: Urine 375 Estimated Blood Loss 50 Other: Weight 117.934 kg Constitutional: No acute distress, conversant, pleasant Eyes: Anicteric sclerae, moist conjunctiva, no lid-lag Pupils equal round reactive to light ENMT: NC/AT Oropharynx clear, no erythema, exudates Neck: Supple, FROM, no masses, or JVD No carotid bruits No thyromegaly Lungs: Clear to auscultation Clear to percussion Normal respiratory effort, no accessory muscle use Cardiovascular: Heart regular in rate and rhythm, No murmurs, gallops, or rubs No peripheral edema Abdominal: Soft Nontender, no guarding, rebound or rigidity Abdomen moving with respiration Normoactive bowel sounds No hepatomegaly, No splenomegaly No palpable mass No abdominal wall hernia noted Skin: Normal temperature, tone, texture, turgor No induration No subcutaneous nodules No rash, lesions No ulcers Extremities: Right lower extremity wrapped in surgical dressing and drain in place and nerve block in place. Capillary refill is immediate over the toes. Surgical dressing is dry and intact No digital cyanosis No clubbing Pedal pulses intact and symmetrical Radial pulses intact and symmetrical No calf tenderness Psychiatric: Alert and oriented to person, place and time Appropriate affect fair judgment Neuro Muscles Strength 5/5 in all 4 extremities Except for limited exam over right lower extremity due to recent surgery Sensation to light touch grossly present throughout Cranial nerves II-XII grossly intact No focal sensory deficits Lymphatics: no palpable cervical or supraclavicular , or inguinal lymph nodes Results Labs: Abnormal Lab Results - Last 24 Hours (Table) 06/25/17 Range/Units 09:36 POC Glucose (mg/dL) 125 H (75-99) mg/dL Assessment and Plan Assessment: 56-year-old male with history of hypertension and hypercholesterolemia. Presented for elective right total knee arthroplasty since he has failed conservative medical management. Patient is being seen by internal medicine service for postoperative medical management as requested by primary orthopedic service Plan: Degenerative joint disease, status post right total knee arthroplasty postoperative day 0 Pain management per orthopedic DVT prophylaxis per orthopedic currently on xarelto #Hypertension currently controlled Continue with lisinopril #Hyperlipidemia Continue simvastatin #DVT prophylaxis per orthopedic service currently on xarelto #Prediabetes Insulin sliding scale #Constipation Continue with fall regimens Check morning labs Thank you for allowing us to participate in the care of this patient. Do not hesitate to contact us with questions. Someone can be reached from the [facility] hospitalist group at all hours of the day at [phone].
[2017-06-25] MEDS ORDERED: LISINOPRIL 20 MG TAB PO SCH (16:00)
[2017-06-25] MEDS: DOCUSATE 100 MG CAP PO SCH (17:03)
[2017-06-25 17:10] LABS: Glucose,Whole Blood 197 mg/dL (75-99)
[2017-06-25] MEDS: INSULIN ASPART 100 UNIT/ML 1 ML 10 ML VIAL SQ SCH ×2 (18:07→22:27)
[2017-06-25] MEDS: ceFAZolin IN SWFI 2 GM/20 ML SYRINGE IVP SCH (19:36)
[2017-06-25] MEDS ORDERED: ATORVASTATIN 20 MG TAB PO SCH (21:00)
[2017-06-25 21:56] LABS: Glucose,Whole Blood 214 mg/dL (75-99)
[2017-06-25] MEDS: MAGNESIUM OXIDE 400 MG TAB PO SCH (22:27)
[2017-06-26] MEDS: ceFAZolin IN SWFI 2 GM/20 ML SYRINGE IVP SCH (04:28)
[2017-06-26] MEDS: HYDROcodone/APAP 7.5-325MG 1 EACH TAB PO PRN ×2 (04:30→13:32)
--- NOTE | 2017-06-26 06:45 | P.PN ---
Progress Note - Text Progress Note Date: 06/26/17 56 yo male, status post right total knee replacement. Patient received the adductor canal catheter. Ropivacaine 0.2% at 8 mls/hr. Patient was seen today at 6:00 AM. Patient was sitting in bed comfortably. VAS score of 0/10 no complains overnight. Assessment and plan: patient will be sent home with the adductor canal pump. Adequate pain control.
[2017-06-26 07:36] LABS: Basophils % (A) 0 %; Eosinophils # (A) 0.1 k/uL (0-0.7); Eosinophils % (A) 1 %; HCT 34.6 % (39.0-53.0); HGB 11.5 gm/dL (13.0-17.5); Lymphocytes # (A) 2.4 k/uL (1.0-4.8); Lymphocytes % (A) 20 %; MCH 29.3 pg (25.0-35.0); MCHC 33.3 g/dL (31.0-37.0); MCV 87.9 fL (80.0-100.0); Mean Platelet Volume 7.2; Monocytes # (A) 0.9 k/uL (0-1.0); Monocytes % (A) 7 %; Neutrophils # (A) 8.8 k/uL (1.3-7.7); Neutrophils % (A) 71 %; Platelet Count 256 k/uL (150-450); RBC 3.93 m/uL (4.30-5.90); RDW 13.2 % (11.5-15.5); WBC 12.4 k/uL (3.8-10.6)
[2017-06-26] MEDS: INSULIN ASPART 100 UNIT/ML 1 ML 10 ML VIAL SQ SCH ×2 (07:38→13:36)
[2017-06-26 07:40] LABS: Glucose,Whole Blood 115 mg/dL (75-99)
[2017-06-26] MEDS: traMADol 50 MG TAB PO SCH ×2 (07:51→13:34)
[2017-06-26 08:07] LABS: Anion Gap 10 mmol/L; Blood Urea Nitrogen 25 mg/dL (9-20); Carbon Dioxide 26 mmol/L (22-30); Chloride 101 mmol/L (98-107); Glucose 114 mg/dL (74-99); Potassium 4.6 mmol/L (3.5-5.1); Sodium 137 mmol/L (137-145)
[2017-06-26] MEDS ORDERED: LISINOPRIL 20 MG TAB PO SCH (09:00)
[2017-06-26] MEDS ORDERED: RIVAROXABAN 10 MG TAB PO SCH (09:00)
[2017-06-26] MEDS ORDERED: FAMOTIDINE 20 MG TAB PO SCH (09:00)
[2017-06-26] MEDS ORDERED: PANTOPRAZOLE 40 MG TABLET PO SCH (09:00)
--- NOTE | 2017-06-26 09:37 | P.PN ---
Subjective Progress Note Date: 06/26/17 Principal diagnosis: Patient seen and examined in follow-up for postop medical management Patient was seen and examined postoperative day #1, doing well no new complaints pain is controlled. He worked with his therapy and went well. Denies any nausea vomiting or abdominal pain. Denies any chest pain or trouble breathing Objective - Vital Signs Vital signs: Vital Signs Temp 97.6 F 06/26/17 00:46 Pulse 85 06/26/17 00:46 Resp 15 06/26/17 00:46 BP 99/59 06/26/17 00:46 Pulse Ox 96 06/26/17 00:46 Intake & Output 06/25/17 06/26/17 06/26/17 18:59 06:59 18:59 Intake Total 2051 600 250 Output Total 425 890 Balance 1626 -290 250 Weight 117.934 kg Intake: IV 1801 Intake, IV Titration 600 Amount Lactated Ringers 1,000 ml 600 @ 50 mls/hr IV .Q20H [facility] Rx#:[id number] Oral 250 250 Output: Drainage 130 Right Knee 130 Urine 375 760 Estimated Blood Loss 50 Other: Voiding Method Indwelling Catheter Indwelling Catheter Indwelling Catheter - Exam Constitutional: vital signs stable, Not in acute distress, pleasant, conversant Lungs: Clear to auscultation bilaterally, clear to percussion, normal respiratory effort Cardiovascular: Regular rate and rhythm, no murmurs, no gallops, no rubs, trace edema over right lower extremity this most likely postoperative Gastrointestinal: Soft, no tenderness to palpation, no palpable hepatosplenomegally, bowel sounds positive Extremities: No digital cyanosis peripheral pulses palpable and equal over bilateral radial arteries and dorsalis pedis artery, no calf muscle tenderness , dressing over the right lower extremity. Drain was removed from the right lower extremity. Pain pump in place right thigh Psych: Alert, oriented to place, person and time, appropriate affect, intact judgment - Labs CBC & Chem 7: 06/26/17 06:34 06/26/17 06:34 Labs: Abnormal Lab Results - Last 24 Hours (Table) 06/25/17 06/25/17 06/25/17 Range/Units 09:36 17:08 21:53 WBC (3.8-10.6) k/uL RBC (4.30-5.90) m/uL Hgb (13.0-17.5) gm/dL Hct (39.0-53.0) % Neutrophils # (1.3-7.7) k/uL BUN (9-20) mg/dL Glucose (74-99) mg/dL POC Glucose (mg/dL) 125 H 197 H 214 H (75-99) mg/dL 06/26/17 06/26/17 06/26/17 Range/Units 06:34 06:34 07:37 WBC 12.4 H (3.8-10.6) k/uL RBC 3.93 L (4.30-5.90) m/uL Hgb 11.5 L (13.0-17.5) gm/dL Hct 34.6 L (39.0-53.0) % Neutrophils # 8.8 H (1.3-7.7) k/uL BUN 25 H (9-20) mg/dL Glucose 114 H (74-99) mg/dL POC Glucose (mg/dL) 115 H (75-99) mg/dL Assessment and Plan Assessment: 56-year-old male with history of hypertension and hypercholesterolemia. Presented for elective right total knee arthroplasty since he has failed conservative medical management. Patient is being seen by internal medicine service for postoperative medical management as requested by primary orthopedic service. Patient seen today doing well on postoperative day #1, he is tolerating Xarelto for DVT prophylaxis denies any GI bleeding. He reports pain to the physical therapy and did well. Tolerating by mouth intake denies any chest pain or trouble breathing. Slight drop in hemoglobin postoperatively. Plan: Degenerative joint disease, status post right total knee arthroplasty postoperative day 1 Pain management per orthopedic DVT prophylaxis per orthopedic currently on xarelto #Postoperative anemia secondary to blood loss Continue to monitor hemoglobin outpatient By mouth for a sulfate daily #Hypertension currently controlled Continue with lisinopril #Hyperlipidemia Continue simvastatin #DVT prophylaxis per orthopedic service currently on xarelto #Prediabetes Insulin sliding scale A1c 6.2% I suggested the patient discussed with his primary care physician starting metformin He verbalized understanding and agreement #Constipation Continue with bowel regimens Labs reviewed and stable Patient stable from internal medicine standpoint for discharge
[2017-06-26] MEDS: DOCUSATE 100 MG CAP PO SCH (10:32)
[2017-06-26] MEDS: MAGNESIUM OXIDE 400 MG TAB PO SCH (10:32)
[2017-06-26 10:50] VITALS: RESP 16
--- NOTE | 2017-06-26 11:11 | P.PN ---
Subjective Progress Note Date: 06/26/17 Principal diagnosis: Status post right total knee arthroplasty Patient is seen today resting in his hospital chair, his is present at bedside. He is doing very well at this time, he is urinating on his own. He is ambulating well and has done downstairs with therapy. He denies any headaches, lightheadedness, chest pain or shortness of breath. Objective - Vital Signs Vital signs: Vital Signs Temp 99.4 F 06/26/17 07:00 Pulse 80 06/26/17 07:00 Resp 16 06/26/17 07:00 BP 120/80 06/26/17 07:00 Pulse Ox 95 06/26/17 07:00 Intake & Output 06/25/17 06/26/17 06/26/17 18:59 06:59 18:59 Intake Total 2051 600 250 Output Total 425 890 150 Balance 1626 -290 100 Weight 117.934 kg Intake: IV 1801 Intake, IV Titration 600 Amount Lactated Ringers 1,000 ml 600 @ 50 mls/hr IV .Q20H [facility] Rx#:[id number] Oral 250 250 Output: Drainage 130 Right Knee 130 Urine 375 760 150 Uretheral (Wong) 150 Estimated Blood Loss 50 Other: Voiding Method Indwelling Catheter Indwelling Catheter Indwelling Catheter - Exam Right lower extremity: Incision is clean, dry, and intact. The [prineo tape] is in good condition. [ There is minimal soft tissue swelling and ecchymosis surrounding the medial and lateral aspects of the incision.] Calf is soft, no tenderness with palpation. Plantar flexion, dorsiflexion, EHL, FHL are intact. Sensory exam to light touch throughout the extremity is intact, [dorsal pedis pulses 2+.] - Labs CBC & Chem 7: 06/26/17 06:34 06/26/17 06:34 Labs: Abnormal Lab Results - Last 24 Hours (Table) 06/25/17 06/25/17 06/26/17 Range/Units 17:08 21:53 06:34 WBC 12.4 H (3.8-10.6) k/uL RBC 3.93 L (4.30-5.90) m/uL Hgb 11.5 L (13.0-17.5) gm/dL Hct 34.6 L (39.0-53.0) % Neutrophils # 8.8 H (1.3-7.7) k/uL BUN (9-20) mg/dL Glucose (74-99) mg/dL POC Glucose (mg/dL) 197 H 214 H (75-99) mg/dL 06/26/17 06/26/17 Range/Units 06:34 07:37 WBC (3.8-10.6) k/uL RBC (4.30-5.90) m/uL Hgb (13.0-17.5) gm/dL Hct (39.0-53.0) % Neutrophils # (1.3-7.7) k/uL BUN 25 H (9-20) mg/dL Glucose 114 H (74-99) mg/dL POC Glucose (mg/dL) 115 H (75-99) mg/dL Assessment and Plan Plan: Assessment: 1. Postop day 1 status post right total knee arthroplasty Plan: 1. Pain control, we'll discharge home on oral medication 2. GI and DVT prophylaxis, utilizing Xarelto 10 mg once a day for 12 days 3. Wound care instructions were discussed 4. Home therapy and nursing after discharge 5. Medical recommendations 6. Discharge planning: Patient will be discharged home today Time with Patient: Less than 30
--- NOTE | 2017-06-26 11:15 | P.DS ---
Providers Date of admission: 06/25/2017 Expected date of discharge: 06/26/17 Attending physician: Dustin Mina Consults: 06/25/17 12:39 Consult Physician Routine Consulting Provider: Mariaelena Cary Consult Reason/Comments: medical management Do you want consulting provider notified?: Yes Primary care physician: Stated None Hospital Course: Date of admission: 06/25/2017 Date of discharge: 06/26/2017 Admission diagnosis: Status post right total knee arthroplasty Discharge diagnosis: Same Attending physician: Dr. Mina Surgical procedures: Right total knee arthroplasty Brief history: Patient is a 56-year-old male with a history of progressive primary right knee osteoarthritis. At this point patient has failed conservative treatment measures and has opted to proceed with a elective right total knee arthroplasty. Hospital course: Details of patient's surgery can be found in operative report. Patient tolerated the procedure well and was subsequently transported to orthopedic floor. Patient's orthopeidc and medical care was provided daily. Patient had daily laboratory tests performed for evaluation of overall blood counts. Patient had daily physical therapy to include strengthening range of motion as well as education with walker ambulation. Patient had daily CPM usage as part of their physical therapy program. Patient was treated with Xarelto for their postoperative DVT prophylaxis during their inpatient stay. Patient was noted to have a relatively uneventful postoperative course. Patient reported satisfactory pain control with oral pain medications by postoperative day 0. Patient showed satisfactory progress with physical therapy. Patient moved steadily through the program and had no difficulty meeting the goals by postoperative day 1. Given patient's otherwise satisfactory course and having met physical therapy goals, plan is to discharge patient home on postoperative day 1. Discharge condition/disposition: Patient will be discharged home in stable condition. Discharge medications: Instructions are given on resumption of patient's normal daily medications per primary care recommendation, in addition patient will be prescribed [place] 7.5 mg/325 mg, tramadol 50 mg, Colace 100 mg, Xarelto 10 mg. Discharge instructions: 1. Wound care and infection precautions, keep incision dry and covered while showering, no lotions, creams, moisturizers. No soaking, tubs, pools, hottubs. Do not scrub over the incision. 2. Weight-bear as tolerated with walker / cane until follow-up. 3. Ice and elevate when necessary. Do not exceed 20 minutes per hour with ice pack. 4. Utilize compression sleeve until seen at first follow up appointment. 5. Visiting nursing care. 6. Home physical therapy including home CPM. 7. Pain meds and anticoagulants per prescription. 8. Pain medication has potential to cause constipation. Increase oral fluid and fiber intake. Contact primary care provider if you have not had a bowel movement within 48 hours after discharge 9. No anti-inflammatory medication until discussed at first post operative visit, this including Motrin, Aleve, Mobic, Diclofenac. 10. Follow up in office at 2 weeks postop with Andrea Rausch PA-C 11. Follow up with your primary care doctor 7-10 days after discharge. 12. Contact [facility] with any questions, . Procedures: Right total knee arthroplasty Patient Condition at Discharge: Good Plan - Discharge Summary Discharge Rx Participant: Yes New Discharge Prescriptions: New Rivaroxaban [Xarelto] 10 mg PO DAILY #12 tab Docusate [Colace] 100 mg PO DAILY #30 capsule HYDROcodone/APAP 7.5-325MG [[place] 7.5] 1 - 2 each PO Q6HR PRN #40 tab PRN Reason: Pain traMADol HCl [Ultram] 50 mg PO Q6H PRN #30 tab PRN Reason: Pain Continue Lisinopril [Prinivil] 20 mg PO QAM Simvastatin 40 mg PO HS Pantoprazole [Protonix] 40 mg PO QAM Magnesium Oxide [Perdue] 500 mg PO BID Discontinued Docusate [Colace] 100 mg PO DAILY #30 capsule HYDROcodone/APAP 7.5-325MG [[place] 7.5] 1 - 2 each PO Q6HR PRN #60 tab PRN Reason: Pain Discharge Medication List Lisinopril [Prinivil] 20 mg PO QAM 09/17/13 [History] Pantoprazole [Protonix] 40 mg PO QAM 05/22/17 [History] Simvastatin 40 mg PO HS 05/22/17 [History] Magnesium Oxide [Perdue] 500 mg PO BID 05/28/17 [History] Rivaroxaban [Xarelto] 10 mg PO DAILY #12 tab 06/25/17 [Rx] Docusate [Colace] 100 mg PO DAILY #30 capsule 06/26/17 [Rx] HYDROcodone/APAP 7.5-325MG [[place] 7.5] 1 - 2 each PO Q6HR PRN #40 tab 06/26/17 [ Rx] traMADol HCl [Ultram] 50 mg PO Q6H PRN #30 tab 06/26/17 [Rx] Follow up Appointment(s)/Referral(s): [facility], [NON-STAFF] - Tom Rausch PAC [PHYSICIAN ENGINE DYNAMOMETER TESTER] - 07/10/17 2:50 pm Activity/Diet/Wound Care/Special Instructions: Orthopedic Discharge Instructions: 1. Wound care and infection precautions, keep incision dry and covered while showering, no lotions, creams, moisturizers. No soaking, pools, hot tubs. Do not scrub over incision. 2. Weight-bear as tolerated with walker / cane until follow-up. 3. Ice and elevate when necessary. Do not exceed 20 minutes per hour with ice pack. 4. Utilize compression sleeve until seen at first follow up appointment. 5. Visiting nursing care. 6. Home physical therapy including home CPM. 7. Pain meds and anticoagulants per prescription. 8. Pain medication has potential to cause constipation. Increase oral fluid and fiber intake. Contact primary care provider if you have not had a bowel movement within 48 hours after discharge. 9. No anti-inflammatory medication until discussed at first post operative visit, this including Motrin, Aleve, Mobic, Diclofenac. 10. Follow up in office at 2 weeks postop with Andrea Rausch PA-C 11. Follow up with your primary care doctor 7-10 days after discharge. 12. Contact [facility] with any questions, [phone]. 13. [facility] - [phone] - Call once home to arrange delivery Discharge Disposition: HOME WITH HOME HEALTH SERVICES
[2017-06-26 11:56] LABS: Glucose,Whole Blood 140 mg/dL (75-99)
[2017-06-26 14:55] VITALS: BP 118/75; PULSE 82; TEMP 97.6
== END 2017-06-26 16:00 | disposition home health service (06) ==
LOC: OR 08:39 → 3SUR 13:10 → OR 06-26 16:00
PROVIDERS: ATTEND Orthopaedic Surgery
DX: M17.11 Unilateral primary osteoarthritis, right knee (principal); I10 Essential (primary) hypertension; E78.00 Pure hypercholesterolemia, unspecified; D62 Acute posthemorrhagic anemia; K21.9 Gastro-esophageal reflux disease without esophagitis; E78.5 Hyperlipidemia, unspecified; E11.9 Type 2 diabetes mellitus without complications; K59.00 Constipation, unspecified; M48.00 Spinal stenosis, site unspecified; Z96.652 Presence of left artificial knee joint; E66.9 Obesity, unspecified; G47.33 Obstructive sleep apnea (adult) (pediatric); Z87.891 Personal history of nicotine dependence; Z83.3 Family history of diabetes mellitus; Z82.49 Family history of ischemic heart disease and other diseases of the circulatory system; Z79.01 Long term (current) use of anticoagulants; Z79.899 Other long term (current) drug therapy; Z68.34 Body mass index [BMI] 34.0-34.9, adult; Z79.84 Long term (current) use of oral hypoglycemic drugs
CPT/HCPCS: 27447; 64448; 97161; 80048; 85025; 85610; 85730; 88300; 73560; C1713; C1776; C1772; J2250; J0171; J1100; J2405; J0690 ×3; J2001; J3010; J1885; J2795; J2704; J0735

== ENCOUNTER → 2018-05-19 | Outpatient (CLI) | payer BC ==
--- NOTE | 2018-05-19 11:08 | US ---
EXAMINATION TYPE: US prostate transrectal DATE OF EXAM: 05/19/2018 COMPARISON: NONE CLINICAL HISTORY: R35.1 Nocturia. Small urinary stream and nocturia x 1 year per patient. This examination was performed using the transrectal probe. EXAM MEASUREMENTS: Gland Size: 4.8 x 4.7 x 3.5cm Volume: 41.1ml Predicted PSA: 4.93 Actual PSA (if available):0.9Ng/ml Mildly enlarged prostate gland as size is > 30.0ml. There are few central zone well-circumscribed nodules typically relating to benign prostatic hyperpla cheli. No suspicious hypoechoic peripheral zone nodule is seen. The prostate gland is overall slightly heterogenous throughout. IMPRESSION: Mild be enlarged and heterogenous prostate gland. Findings are most compatible with nikko gn prostatic hyperplasia. Predicted PSA = volume x 0.12 ng/ml Calculated Volume = 0.5236 x L x W x H
== END ==
LOC: RADUSMAIN 08:41
PROVIDERS: ATTEND Family Medicine
DX: N40.0 Benign prostatic hyperplasia without lower urinary tract symptoms (principal)
CPT/HCPCS: 76872